=== PATIENT | female | born 1990 | race Caucasian/White ===

== ENCOUNTER 2019-06-25 20:35 | Emergency (ER) | payer OTHER ==
[~2019-06-25] VITALS: Ht 157.5 cm; Wt 76.4 kg
[~2019-06-25 20:35] MED LIST: ACET500T98 PO; NITR-58 PO
[2019-06-25 20:41] VITALS: Ht 157.5 cm; Wt 76.4 kg
[2019-06-25] MEDS ORDERED: ACETAMINOPHEN 325 MG TAB PO ONE (22:30)
[2019-06-25 23:17] VITALS: BP 122/64; PULSE 76; RESP 17
== END 2019-06-25 23:17 | disposition home or self-care (01) ==
LOC: FTE 20:35
DX: O26.892 Other specified pregnancy related conditions, second trimester (principal); R30.0 Dysuria; Z3A.18 18 weeks gestation of pregnancy
CPT/HCPCS: 81001; 87086; 99283